=== PATIENT | female | born 2000 | race Caucasian/White ===

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

== ENCOUNTER 2022-02-12 20:17 | Emergency (ER) | payer OTHER ==
[~2022-02-12 20:17] MED LIST changes: +BACTRIM DS TAB1 EACH PO; +CEPHALEXIN500 MG PO
[2022-02-12 22:12] LABS: HEMOGLOBIN 15.4 gm/dl (12.3-15.3); RED BLOOD COUNT 5.3 M/UL (4.00-5.10); WHITE BLOOD COUNT 10.2 K/UL (4.5-11.0)
[2022-02-12 22:25] LABS: BUN/CREATININE RATIO 8 (0-10)
== END 2022-02-12 23:12 | disposition home or self-care (01) ==
LOC: ER1 20:17
PROVIDERS: Emergency Medicine
DX: R59.0 Localized enlarged lymph nodes (principal)
CPT/HCPCS: 80048; 85025; 99283